=== PATIENT | female | born 1970 | race Caucasian/White ===

== ENCOUNTER 2021-12-24 14:58 | Emergency (ER) | payer SELFPAY ==
[~2021-12-24] VITALS: Ht 160 cm; Wt 90.7 kg
[2021-12-24] MEDS ORDERED: TAMIFLU75 MG PO (15:48)
[2021-12-24] MEDS ORDERED: PREDNISONE50 MG PO (15:48)
[2021-12-24] MEDS ORDERED: PROAIR HFA INH8.5 GM PO (15:48)
[2021-12-24] MEDS ORDERED: IBUPROFEN600 MG PO (15:48)
== END 2021-12-24 16:10 | disposition home or self-care (01) ==
LOC: ER 15:09
DX: R05.9 Cough, unspecified (principal); J32.9 Chronic sinusitis, unspecified; R09.89 Other specified symptoms and signs involving the circulatory and respiratory systems
CPT/HCPCS: 99282